=== PATIENT | male | born 1955 | race Caucasian/White ===

== ENCOUNTER 2021-09-20 10:14 | Outpatient (CLI) | payer MEDICARE, BC ==
[2021-09-20 22:59] LABS: SARS-CoV-2 PCR by NAA DETECTED (NotDetected)
== END 2021-09-20 10:15 | disposition home or self-care (01) ==
LOC: LABBT 10:14
PROVIDERS: ATTEND Surgery
DX: U07.1 COVID-19 (principal); Z01.812 Encounter for preprocedural laboratory examination; M50.30 Other cervical disc degeneration, unspecified cervical region
CPT/HCPCS: U0003; U0005

== ENCOUNTER 2021-11-17 06:59 | Day surgery (SDC) | payer MEDICARE, BC ==
[2021-11-15 15:15] VITALS: BMI 36.6
[2021-11-17] MEDS ORDERED: Lorazepam 1 MG TAB ONE (07:45)
[2021-11-17 08:00] VITALS: TEMP 97.8
[2021-11-17] MEDS ORDERED: Lorazepam 1 MG TAB PO SCH (08:00)
[2021-11-17 10:15] VITALS: BP 133/89
== END 2021-11-17 10:25 | disposition home or self-care (01) ==
LOC: RAD 06:59
PROVIDERS: ATTEND Surgery
PROC: B01B1ZZ Fluoroscopy of Spinal Cord using Low Osmolar Contrast (ICD-10-PCS; principal; 2021-11-17)
DX: M50.30 Other cervical disc degeneration, unspecified cervical region (principal); M47.812 Spondylosis without myelopathy or radiculopathy, cervical region; M48.02 Spinal stenosis, cervical region; Z79.1 Long term (current) use of non-steroidal anti-inflammatories (NSAID); Z79.4 Long term (current) use of insulin; Z79.82 Long term (current) use of aspirin; Z79.84 Long term (current) use of oral hypoglycemic drugs; Z79.899 Other long term (current) drug therapy; Z98.1 Arthrodesis status
CPT/HCPCS: 62302; 62305; 72126